=== PATIENT | female | born 1945 | race Caucasian/White ===

== ENCOUNTER 2017-11-26 03:48 | Inpatient (IN) | payer MEDICARE, MEDICAID ==
[~2017-11-26] VITALS: Ht 162.6 cm; Wt 74.0 kg
[~2017-11-26 03:48] MED LIST: ACET-2119 PO; ALBU1.257 NEB; ATOR10TA70 PO; BISA10SU60 RC; CARV25TA56 PO; CEPH250T PO; DOCU-28 PO; ESCI10TA54 PO; FLUC150T PO; FLUT1AER INH; FURO-150 PO; LEVO50TA8 PO; LORA0.5T PO; LOSA50TA21 PO; MAGN400O6 PO; MORP100T21 PO; MULT-1085 PO; ONDA4TAB9 SL; OXYC-145 PO; PHEN-716 PO; POLY17PO10 PO; POTA10TA19 PO; SPIIN IH; SULF1TAB49 PO; VARE0.5T PO
[2017-11-26] MEDS ORDERED: methylPREDNISolone sod succ 125mg/2ml vial IV ONE (04:05)
[2017-11-26] MEDS ORDERED: albuterol 2.5 MG/3 ML nebule CONTNEB PRN (04:05)
[2017-11-26 05:04] LABS: BASOPHILS % (AUTO) 0.4 % (0-1); EOSINOPHILS # (AUTO) 0.1 X10'3 (0-0.9); EOSINOPHILS % (AUTO) 1.4 % (0-6); HEMATOCRIT 37.5 % (35.0-45.0); HEMOGLOBIN 12.5 g/dl (12.0-16.0); LYMPHOCYTES # (AUTO) 1.8 X10'3 (1.1-4.8); LYMPHOCYTES % (AUTO) 19.1 % (21-51); MEAN CORPUSCULAR HEMOGLOBIN 32.3 PG (27.0-31.0); MEAN CORPUSCULAR HGB CONC 33.3 % (33.0-36.5); MEAN CORPUSCULAR VOLUME 96.9 FL (78-98); MEAN PLATELET VOLUME 8.6 FL (7.4-10.4); MONOCYTES # (AUTO) 0.6 X10'3 (0-0.9); NEUTROPHILS % (AUTO) 73.1 % (42-75); PLATELET COUNT 268 X10'3 (140-440); RED BLOOD COUNT 3.87 X10'6 (4.20-5.60); WHITE BLOOD COUNT 9.6 X10'3 (4.5-11.0)
[2017-11-26 05:36] LABS: ALANINE AMINOTRANSFERASE 20 U/L (12-78); ALBUMIN/GLOBULIN RATIO 0.7 (1.1-1.5); ALKALINE PHOSPHATASE 109 IU/L (46-116); ANION GAP 9 (8-16); ASPARTATE AMINO TRANSFERASE 22 U/L (10-37); BILIRUBIN,TOTAL 0.2 MG/DL (0.1-1.0); CALCIUM 9.1 MG/DL (8.5-10.1); CHLORIDE 103 MMOL/L (99-107); CREATININE 0.65 MG/DL (0.40-0.90); GLUCOSE 119 MG/DL (70-104); SODIUM 142 MMOL/L (135-145); TOTAL CARBON DIOXIDE 30.5 MMOL/L (24-32); TOTAL PROTEIN 7.6 G/DL (6.4-8.2); eGFR 90 ML/MIN
[2017-11-26 05:44] LABS: BUN/CREATININE RATIO 44.6 (6.6-38.0)
[2017-11-26 05:45] LABS: POTASSIUM 4.7 MMOL/L (3.5-5.1)
[2017-11-26 05:48] LABS: BLOOD UREA NITROGEN 29 MG/DL (7-18)
[2017-11-26] MEDS ORDERED: acetaminophen 325mg tablet PO PRN (08:55)
[2017-11-26] MEDS ORDERED: morphine 2 MG/ML inj. syringe IV PRN ×2 (08:55)
[2017-11-26] MEDS ORDERED: ondansetron/PF 4mg/2ml inj IV PRN (08:55)
[2017-11-26] MEDS ORDERED: magnesium Cl slow-release 64mg tablet PO PRN (08:55)
[2017-11-26] MEDS ORDERED: potassium Cl 40MEQ/NS 500ml 500 ML IV PRN ×2 (08:55)
[2017-11-26] MEDS ORDERED: magnesium 1gm/100ml D5W IVPB 100 ML IV PRN (08:55)
[2017-11-26] MEDS ORDERED: potassium Cl 20 mEq SR tablet PO PRN ×2 (08:55)
[2017-11-26] MEDS ORDERED: magnesium 4gm in 100ml NS 100 ML IV PRN (08:55)
[2017-11-26] MEDS ORDERED: CRAN3875 PO (09:05)
[2017-11-26] MEDS ORDERED: FAMO-128 PO (09:05)
[2017-11-26] MEDS ORDERED: LORA0.5T PO (09:05)
[2017-11-26] MEDS ORDERED: GUAI100L55 (09:05)
[2017-11-26] MEDS ORDERED: FURO-150 PO (09:05)
[2017-11-26] MEDS ORDERED: SERT50TA PO (09:05)
[2017-11-26] MEDS ORDERED: POTA20TA19 PO (09:05)
[2017-11-26] MEDS ORDERED: CARV-50 PO (09:05)
[2017-11-26] MEDS ORDERED: PER10325T PO (09:05)
[2017-11-26] MEDS ORDERED: ARIP5TAB4 PO (09:05)
[2017-11-26] MEDS ORDERED: MAGN400O6 PO (09:05)
[2017-11-26] MEDS ORDERED: GUAI600T45 PO (09:05)
[2017-11-26] MEDS ORDERED: CEPH-572 PO (09:05)
[2017-11-26] MEDS ORDERED: MORP30TA60 PO (09:05)
[2017-11-26] MEDS ORDERED: IPRA3AMP9 IH (09:05)
[2017-11-26] MEDS ORDERED: CHOL10002 PO (09:05)
[2017-11-26] MEDS ORDERED: TIOT18CA3 IH (09:05)
[2017-11-26] MEDS ORDERED: UMEC62.5 (09:05)
[2017-11-26] MEDS ORDERED: nicotine 14mg patch - 24hr TD ONE (09:15)
[2017-11-26] MEDS ORDERED: LORazepam 0.5 MG tablet PO PRN (09:15)
[2017-11-26 09:26] LABS: ABG BASE EXCESS 1.5 mmol/L (-2.0-3.0); ABG HCO3 29.7 mmol/L (22.0-26.0); ABG OXYGEN SATURATION 88.8 % (95-98); ABG PCO2 (T) 62.7 mmHg (32.0-45.0); ABG PH (T) 7.293 (7.350-7.450); ABG PO2 (T) 60.5 mmHg (83-108); ALLEN'S TEST Positive; FCOHb 0.8 % (0.5-1.5); FLOW 5 L/min; FMetHb 0.1 % (0.3-1.12); TOTAL HEMOGLOBIN 14.4 G/dl (12.0-16.0)
[2017-11-26] MEDS: normal saline 1000ml 1,000 ML IV SCH (09:36)
[2017-11-26 10:40] VITALS: BP 138/77
[2017-11-26] MEDS ORDERED: albuterol 2.5 MG/3 ML nebule NEB SCH (11:00)
[2017-11-26] MEDS: albuterol 2.5 MG/3 ML nebule NEB SCH ×4 (11:05→23:47)
[2017-11-26] MEDS: HYDROcodone/acetaminophen 10/325mg tab PO PRN (12:14)
[2017-11-26] MEDS: CefTRIAXone 2gm/D5W 50ml 50 ML IV SCH (12:15)
[2017-11-26] MEDS ORDERED: pneumococcal 23-VAL P-sac vacc 25 mcg/0.5ml vial IMVAC ONE (16:35)
[2017-11-26 17:45] VITALS: BP 122/77
[2017-11-26] MEDS ORDERED: diltiazem-NS 100mg/100ml 100 ML IV SCH (17:55)
[2017-11-26 19:00] VITALS: BP 120/72
[2017-11-26] MEDS: docusate sod 100mg capsule PO SCH (19:35)
[2017-11-26] MEDS: morphine ER 30mg tablet PO SCH (19:35)
[2017-11-26] MEDS: guaiFENesin ER 600mg tablet PO SCH (19:35)
[2017-11-26] MEDS: carvedilol 6.25mg tablet PO SCH (19:36)
[2017-11-26] MEDS: famotidine 20mg tablet PO SCH (19:36)
[2017-11-26] MEDS: heparin, porcine 5000 units/ml vial SQ SCH (19:37)
[2017-11-26] MEDS: BUDESONIDE 0.25 MG/2 ML AMPUL.NEB IH SCH (20:13)
[2017-11-26] MEDS ORDERED: temazepam 15mg capsule PO PRN (21:00)
[2017-11-26] MEDS: atorvastatin 10mg tablet PO SCH (21:48)
[2017-11-26] MEDS: sertraline 50mg tablet PO SCH (21:48)
[2017-11-26 22:00] VITALS: BP 132/66
[2017-11-27 02:00] VITALS: BP 117/63
[2017-11-27] MEDS: albuterol 2.5 MG/3 ML nebule NEB SCH ×4 (06:48→20:14)
[2017-11-27] MEDS: BUDESONIDE 0.25 MG/2 ML AMPUL.NEB IH SCH ×2 (06:48→20:14)
[2017-11-27 07:00] VITALS: BP 122/65
[2017-11-27] MEDS: levoTHYROXINE 112mcg tablet PO SCH (07:00)
[2017-11-27] MEDS: potassium chloride 10mEq ER tablet PO SCH (08:00)
[2017-11-27] MEDS: K and/or MAG REPLACEMENT MC SCH (08:00)
[2017-11-27 08:11] LABS: BASOPHILS % (AUTO) 0.2 % (0-1); EOSINOPHILS # (AUTO) 0.1 X10'3 (0-0.9); HEMATOCRIT 39.3 % (35.0-45.0); HEMOGLOBIN 12.8 g/dl (12.0-16.0); LYMPHOCYTES # (AUTO) 1.9 X10'3 (1.1-4.8); LYMPHOCYTES % (AUTO) 22.6 % (21-51); MEAN CORPUSCULAR HEMOGLOBIN 32.1 PG (27.0-31.0); MEAN CORPUSCULAR HGB CONC 32.6 % (33.0-36.5); MEAN CORPUSCULAR VOLUME 98.4 FL (78-98); MEAN PLATELET VOLUME 8.9 FL (7.4-10.4); MONOCYTES # (AUTO) 0.8 X10'3 (0-0.9); MONOCYTES % (AUTO) 9.3 % (2-12); NEUTROPHILS # (AUTO) 5.5 X10'3 (1.8-7.7); NEUTROPHILS % (AUTO) 66.9 % (42-75); PLATELET COUNT 280 X10'3 (140-440); RED BLOOD COUNT 3.99 X10'6 (4.20-5.60); WHITE BLOOD COUNT 8.2 X10'3 (4.5-11.0)
[2017-11-27 08:22] LABS: ANION GAP 10 (8-16); BLOOD UREA NITROGEN 23 MG/DL (7-18); BUN/CREATININE RATIO 29.9 (6.6-38.0); CHLORIDE 105 MMOL/L (99-107); CREATININE 0.77 MG/DL (0.40-0.90); GLUCOSE 100 MG/DL (70-104); MAGNESIUM 2.3 MG/DL (1.5-2.4); POTASSIUM 4.2 MMOL/L (3.5-5.1); SODIUM 145 MMOL/L (135-145); TOTAL CARBON DIOXIDE 30.5 MMOL/L (24-32); eGFR 74 ML/MIN
[2017-11-27] MEDS: guaiFENesin ER 600mg tablet PO SCH ×2 (08:41→20:39)
[2017-11-27] MEDS: morphine ER 30mg tablet PO SCH ×2 (08:42→20:39)
[2017-11-27] MEDS: docusate sod 100mg capsule PO SCH ×2 (08:42→20:38)
[2017-11-27] MEDS: famotidine 20mg tablet PO SCH ×2 (08:44→20:40)
[2017-11-27] MEDS: furosemide 20MG tablet PO SCH (08:44)
[2017-11-27] MEDS: carvedilol 6.25mg tablet PO SCH ×2 (08:44→20:38)
[2017-11-27] MEDS: aripiprazole 5mg tablet PO SCH (08:45)
[2017-11-27] MEDS: losartan 25mg tablet PO SCH (08:45)
[2017-11-27] MEDS: methylPREDNISolone sod succ/PF 40mg inj. IV SCH (08:50)
[2017-11-27] MEDS: heparin, porcine 5000 units/ml vial SQ SCH (08:50)
[2017-11-27] MEDS: CefTRIAXone 2gm/D5W 50ml 50 ML IV SCH (08:50)
[2017-11-27 10:51] LABS: ABG BASE EXCESS 6.2 mmol/L (-2.0-3.0); ABG HCO3 31.8 mmol/L (22.0-26.0); ABG PCO2 (T) 49.2 mmHg (32.0-45.0); ABG PH (T) 7.429 (7.350-7.450); ABG PO2 (T) 43.9 mmHg (83-108); ALLEN'S TEST Positive; FLOW 3 L/min
[2017-11-27 11:00] VITALS: BP 108/61
[2017-11-27] MEDS: diltiazem CD 120mg capsule (once-daily) PO SCH (14:30)
[2017-11-27] MEDS: HYDROcodone/acetaminophen 5mg/325mg tablet PO PRN (14:31)
[2017-11-27 15:00] VITALS: BP 95/61
[2017-11-27 19:00] VITALS: BP 119/66
[2017-11-27] MEDS: lactobacillus rhamnosus 10,000 MMU CELLS/CAPSULE PO SCH (20:38)
[2017-11-27] MEDS: apixaban 5mg tablet PO SCH (20:38)
[2017-11-27] MEDS: atorvastatin 10mg tablet PO SCH (20:39)
[2017-11-27] MEDS: sertraline 50mg tablet PO SCH (20:39)
[2017-11-27 23:00] VITALS: BP_SYST 116; BP_SYST 98; BP_DIAS 59; BP_DIAS 87
[2017-11-28] VITALS (7 sets, daily range): BP systolic 91–114; BP diastolic 51–71
[2017-11-28] MEDS: HYDROcodone/acetaminophen 5mg/325mg tablet PO PRN (03:10)
[2017-11-28 06:37] LABS: ALBUMIN 2.8 G/DL (3.4-5.0); ANION GAP 9 (8-16); BASOPHILS % (AUTO) 0.3 % (0-1); BLOOD UREA NITROGEN 28 MG/DL (7-18); BUN/CREATININE RATIO 38.9 (6.6-38.0); CALCIUM 8.7 MG/DL (8.5-10.1); CHLORIDE 104 MMOL/L (99-107); CREATININE 0.72 MG/DL (0.40-0.90); EOSINOPHILS # (AUTO) 0.1 X10'3 (0-0.9); EOSINOPHILS % (AUTO) 0.8 % (0-6); GLUCOSE 88 MG/DL (70-104); HEMOGLOBIN 12.2 g/dl (12.0-16.0); LYMPHOCYTES # (AUTO) 2.5 X10'3 (1.1-4.8); LYMPHOCYTES % (AUTO) 29.3 % (21-51); MEAN CORPUSCULAR HEMOGLOBIN 32.1 PG (27.0-31.0); MEAN CORPUSCULAR HGB CONC 32.9 % (33.0-36.5); MEAN CORPUSCULAR VOLUME 97.4 FL (78-98); MEAN PLATELET VOLUME 8.3 FL (7.4-10.4); MONOCYTES # (AUTO) 0.8 X10'3 (0-0.9); MONOCYTES % (AUTO) 9.7 % (2-12); NEUTROPHILS % (AUTO) 59.9 % (42-75); PLATELET COUNT 286 X10'3 (140-440); POTASSIUM 3.7 MMOL/L (3.5-5.1); RED CELL DISTRIBUTION WIDTH 13.7 % (11.5-14.5); SODIUM 143 MMOL/L (135-145); TOTAL CARBON DIOXIDE 29.9 MMOL/L (24-32); WHITE BLOOD COUNT 8.4 X10'3 (4.5-11.0); eGFR 80 ML/MIN
[2017-11-28] MEDS: albuterol 2.5 MG/3 ML nebule NEB SCH ×4 (07:41→19:56)
[2017-11-28] MEDS: BUDESONIDE 0.25 MG/2 ML AMPUL.NEB IH SCH ×2 (07:41→19:56)
[2017-11-28] MEDS: K and/or MAG REPLACEMENT MC SCH (08:00)
[2017-11-28] MEDS: levoTHYROXINE 112mcg tablet PO SCH (08:00)
[2017-11-28] MEDS: carvedilol 6.25mg tablet PO SCH ×2 (08:00→20:05)
[2017-11-28] MEDS: morphine ER 30mg tablet PO SCH ×2 (08:09→20:06)
[2017-11-28] MEDS: famotidine 20mg tablet PO SCH ×2 (08:09→20:06)
[2017-11-28] MEDS: aripiprazole 5mg tablet PO SCH (08:10)
[2017-11-28] MEDS: diltiazem CD 120mg capsule (once-daily) PO SCH (08:10)
[2017-11-28] MEDS: guaiFENesin ER 600mg tablet PO SCH ×2 (08:11→20:06)
[2017-11-28] MEDS: losartan 25mg tablet PO SCH (08:12)
[2017-11-28] MEDS: docusate sod 100mg capsule PO SCH ×2 (08:12→20:05)
[2017-11-28] MEDS: lactobacillus rhamnosus 10,000 MMU CELLS/CAPSULE PO SCH ×2 (08:13→20:05)
[2017-11-28] MEDS: furosemide 20MG tablet PO SCH (08:13)
[2017-11-28] MEDS: apixaban 5mg tablet PO SCH ×2 (08:13→20:05)
[2017-11-28] MEDS: methylPREDNISolone sod succ/PF 40mg inj. IV SCH (08:14)
[2017-11-28] MEDS: potassium chloride 10mEq ER tablet PO SCH (08:14)
[2017-11-28] MEDS: CefTRIAXone 2gm/D5W 50ml 50 ML IV SCH (08:15)
[2017-11-28] MEDS: normal saline 1000ml 1,000 ML IV SCH (08:55)
[2017-11-28] MEDS ORDERED: CefTRIAXone/D5W-Rocephin 1gm 50 ML IV SCH (09:15)
[2017-11-28] MEDS: HYDROcodone/acetaminophen 10/325mg tab PO PRN ×2 (14:55→21:13)
[2017-11-28] MEDS: vancomycin/NS 1 GM ADD-VANTAGE 250 ML IV SCH (14:55)
[2017-11-28] MEDS ORDERED: vancomycin/NS 1 GM ADD-VANTAGE 250 ML IV SCH (20:00)
[2017-11-28] MEDS: sertraline 50mg tablet PO SCH (21:12)
[2017-11-28] MEDS: atorvastatin 10mg tablet PO SCH (21:12)
[2017-11-29] VITALS (8 sets, daily range): BP systolic 106–133; BP diastolic 54–65
[2017-11-29] MEDS: vancomycin/NS 1 GM ADD-VANTAGE 250 ML IV SCH ×2 (02:10→15:12)
[2017-11-29] MEDS: HYDROcodone/acetaminophen 10/325mg tab PO PRN ×2 (03:32→13:43)
[2017-11-29 05:42] LABS: BASOPHILS % (AUTO) 0.4 % (0-1); EOSINOPHILS # (AUTO) 0.2 X10'3 (0-0.9); EOSINOPHILS % (AUTO) 2.6 % (0-6); HEMATOCRIT 34.7 % (35.0-45.0); HEMOGLOBIN 11.4 g/dl (12.0-16.0); LYMPHOCYTES # (AUTO) 2.2 X10'3 (1.1-4.8); LYMPHOCYTES % (AUTO) 29.1 % (21-51); MEAN CORPUSCULAR HEMOGLOBIN 31.7 PG (27.0-31.0); MEAN CORPUSCULAR HGB CONC 32.9 % (33.0-36.5); MEAN CORPUSCULAR VOLUME 96.5 FL (78-98); MEAN PLATELET VOLUME 8.6 FL (7.4-10.4); MONOCYTES # (AUTO) 0.8 X10'3 (0-0.9); MONOCYTES % (AUTO) 10.1 % (2-12); NEUTROPHILS # (AUTO) 4.3 X10'3 (1.8-7.7); NEUTROPHILS % (AUTO) 57.8 % (42-75); PLATELET COUNT 261 X10'3 (140-440); RED BLOOD COUNT 3.59 X10'6 (4.20-5.60); RED CELL DISTRIBUTION WIDTH 13.9 % (11.5-14.5); WHITE BLOOD COUNT 7.4 X10'3 (4.5-11.0)
[2017-11-29 05:49] LABS: ALBUMIN 2.6 G/DL (3.4-5.0); ANION GAP 9 (8-16); BLOOD UREA NITROGEN 22 MG/DL (7-18); BUN/CREATININE RATIO 33.3 (6.6-38.0); CALCIUM 8.2 MG/DL (8.5-10.1); CHLORIDE 105 MMOL/L (99-107); CREATININE 0.66 MG/DL (0.40-0.90); GLUCOSE 91 MG/DL (70-104); MAGNESIUM 1.9 MG/DL (1.5-2.4); POTASSIUM 3.7 MMOL/L (3.5-5.1); SODIUM 144 MMOL/L (135-145); TOTAL CARBON DIOXIDE 29.7 MMOL/L (24-32); eGFR 89 ML/MIN
[2017-11-29] MEDS: CefTRIAXone/D5W-Rocephin 1gm 50 ML IV SCH (07:21)
[2017-11-29] MEDS: potassium chloride 10mEq ER tablet PO SCH (07:21)
[2017-11-29] MEDS: methylPREDNISolone sod succ/PF 40mg inj. IV SCH (07:21)
[2017-11-29] MEDS: levoTHYROXINE 112mcg tablet PO SCH (07:21)
[2017-11-29] MEDS: aripiprazole 5mg tablet PO SCH (07:21)
[2017-11-29] MEDS: guaiFENesin ER 600mg tablet PO SCH ×2 (07:21→20:45)
[2017-11-29] MEDS: diltiazem CD 120mg capsule (once-daily) PO SCH (07:22)
[2017-11-29] MEDS: lactobacillus rhamnosus 10,000 MMU CELLS/CAPSULE PO SCH ×2 (07:22→20:45)
[2017-11-29] MEDS: carvedilol 6.25mg tablet PO SCH ×2 (07:22→20:45)
[2017-11-29] MEDS: losartan 25mg tablet PO SCH (07:22)
[2017-11-29] MEDS: apixaban 5mg tablet PO SCH ×2 (07:23→20:45)
[2017-11-29] MEDS: morphine ER 30mg tablet PO SCH ×2 (07:23→20:45)
[2017-11-29] MEDS: famotidine 20mg tablet PO SCH ×2 (07:23→20:45)
[2017-11-29] MEDS: docusate sod 100mg capsule PO SCH ×2 (08:00→20:45)
[2017-11-29] MEDS: BUDESONIDE 0.25 MG/2 ML AMPUL.NEB IH SCH ×2 (08:02→19:22)
[2017-11-29] MEDS: albuterol 2.5 MG/3 ML nebule NEB SCH ×4 (08:03→19:22)
[2017-11-29] MEDS: K and/or MAG REPLACEMENT MC SCH (08:13)
[2017-11-29] MEDS: normal saline 1000ml 1,000 ML IV SCH (13:44)
[2017-11-29] MEDS: atorvastatin 10mg tablet PO SCH (20:45)
[2017-11-29] MEDS: sertraline 50mg tablet PO SCH (20:45)
[2017-11-30] MEDS ORDERED: VANCOMYCIN LEVEL IV ONE (01:30)
[2017-11-30 01:57] LABS: ALBUMIN 2.5 G/DL (3.4-5.0); ANION GAP 8 (8-16); BLOOD UREA NITROGEN 22 MG/DL (7-18); BUN/CREATININE RATIO 27.8 (6.6-38.0); CALCIUM 8.7 MG/DL (8.5-10.1); CHLORIDE 106 MMOL/L (99-107); CREATININE 0.79 MG/DL (0.40-0.90); GLUCOSE 118 MG/DL (70-104); MAGNESIUM 1.9 MG/DL (1.5-2.4); POTASSIUM 4.3 MMOL/L (3.5-5.1); SODIUM 143 MMOL/L (135-145); TOTAL CARBON DIOXIDE 29.4 MMOL/L (24-32); eGFR 72 ML/MIN
[2017-11-30] MEDS: vancomycin/NS 1 GM ADD-VANTAGE 250 ML IV SCH (02:00)
[2017-11-30 02:11] LABS: VANCOMYCIN,TROUGH 20.8 UG/ML (6.0-14.0)
[2017-11-30 03:00] VITALS: BP 128/60
[2017-11-30 05:45] LABS: BASOPHILS % (AUTO) 0.5 % (0-1); EOSINOPHILS # (AUTO) 0.1 X10'3 (0-0.9); EOSINOPHILS % (AUTO) 1.3 % (0-6); HEMATOCRIT 35.1 % (35.0-45.0); HEMOGLOBIN 11.5 g/dl (12.0-16.0); LYMPHOCYTES # (AUTO) 2.5 X10'3 (1.1-4.8); LYMPHOCYTES % (AUTO) 28.9 % (21-51); MEAN CORPUSCULAR HGB CONC 32.8 % (33.0-36.5); MEAN CORPUSCULAR VOLUME 97.6 FL (78-98); MEAN PLATELET VOLUME 8.7 FL (7.4-10.4); MONOCYTES # (AUTO) 0.8 X10'3 (0-0.9); MONOCYTES % (AUTO) 9.6 % (2-12); NEUTROPHILS # (AUTO) 5.1 X10'3 (1.8-7.7); NEUTROPHILS % (AUTO) 59.7 % (42-75); PLATELET COUNT 294 X10'3 (140-440); RED BLOOD COUNT 3.59 X10'6 (4.20-5.60); RED CELL DISTRIBUTION WIDTH 13.5 % (11.5-14.5); WHITE BLOOD COUNT 8.6 X10'3 (4.5-11.0)
[2017-11-30 07:00] VITALS: BP 135/65
[2017-11-30] MEDS ORDERED: levoTHYROXINE 25mcg tablet PO SCH (07:00)
[2017-11-30] MEDS ORDERED: levoTHYROXINE 112mcg tablet PO SCH (07:00)
[2017-11-30] MEDS: docusate sod 100mg capsule PO SCH (08:00)
[2017-11-30] MEDS: morphine ER 30mg tablet PO SCH (08:00)
[2017-11-30] MEDS: CefTRIAXone/D5W-Rocephin 1gm 50 ML IV SCH (08:00)
[2017-11-30] MEDS: guaiFENesin ER 600mg tablet PO SCH (08:00)
[2017-11-30] MEDS: K and/or MAG REPLACEMENT MC SCH (08:00)
[2017-11-30] MEDS: famotidine 20mg tablet PO SCH (08:00)
[2017-11-30] MEDS: aripiprazole 5mg tablet PO SCH (08:00)
[2017-11-30] MEDS: methylPREDNISolone sod succ/PF 40mg inj. IV SCH (08:00)
[2017-11-30] MEDS: lactobacillus rhamnosus 10,000 MMU CELLS/CAPSULE PO SCH (08:00)
[2017-11-30] MEDS: potassium chloride 10mEq ER tablet PO SCH (08:00)
[2017-11-30] MEDS: carvedilol 6.25mg tablet PO SCH (08:01)
[2017-11-30] MEDS: diltiazem CD 120mg capsule (once-daily) PO SCH (08:02)
[2017-11-30] MEDS: losartan 25mg tablet PO SCH (08:02)
[2017-11-30] MEDS: apixaban 5mg tablet PO SCH (08:02)
[2017-11-30] MEDS: albuterol 2.5 MG/3 ML nebule NEB SCH ×2 (08:05→12:13)
[2017-11-30] MEDS: BUDESONIDE 0.25 MG/2 ML AMPUL.NEB IH SCH (08:06)
[2017-11-30 11:00] VITALS: BP 114/61
[2017-11-30] MEDS ORDERED: CARCD120C PO (11:20)
[2017-11-30] MEDS ORDERED: LEVO25TA7 PO (11:20)
[2017-11-30] MEDS ORDERED: APIX5TAB3 PO (11:20)
[2017-11-30] MEDS ORDERED: PRED10TA23 PO (11:20)
== END 2017-11-30 13:42 | DRG 189 ==
LOC: ER 03:48 → ED HOLD 08:55 → SUR 3N 10:30 → PCU 3S 18:50
PROVIDERS: ADMIT Internal Medicine; ATTEND Family Medicine
PROC: 3E0234Z Introduction of Serum, Toxoid and Vaccine into Muscle, Percutaneous Approach (ICD-10-PCS; principal; 2017-11-26)
DX: J96.21 Acute and chronic respiratory failure with hypoxia (principal); E43 Unspecified severe protein-calorie malnutrition; J44.1 Chronic obstructive pulmonary disease with (acute) exacerbation; E87.2 Acidosis; J44.0 Chronic obstructive pulmonary disease with (acute) lower respiratory infection; J20.9 Acute bronchitis, unspecified; E03.9 Hypothyroidism, unspecified; E78.5 Hyperlipidemia, unspecified; F17.210 Nicotine dependence, cigarettes, uncomplicated; F32.9 Major depressive disorder, single episode, unspecified; F41.9 Anxiety disorder, unspecified; G89.4 Chronic pain syndrome; I11.0 Hypertensive heart disease with heart failure; I25.10 Atherosclerotic heart disease of native coronary artery without angina pectoris; I48.91 Unspecified atrial fibrillation; I50.9 Heart failure, unspecified; K21.9 Gastro-esophageal reflux disease without esophagitis; Z23 Encounter for immunization; Z90.49 Acquired absence of other specified parts of digestive tract; Z90.710 Acquired absence of both cervix and uterus; Z93.3 Colostomy status; Z79.899 Other long term (current) drug therapy; Z79.01 Long term (current) use of anticoagulants; Z87.440 Personal history of urinary (tract) infections; Z87.01 Personal history of pneumonia (recurrent); Z82.49 Family history of ischemic heart disease and other diseases of the circulatory system; Z82.5 Family history of asthma and other chronic lower respiratory diseases; Z84.89 Family history of other specified conditions; Z68.28 Body mass index [BMI] 28.0-28.9, adult; Z71.6 Tobacco abuse counseling
CPT/HCPCS: 36415; 36600; 71045; 80048; 80053; 80202; 82803; 83605; 83735; 83880; 84443; 84484; 85018; 85025; 87040; 87070; 87077; 87186; 90732; 93005; 94640; 94760; 96374; 97110; 97116; 97162; 99285; A6213; J0696; J1644; J2270; J2405; J2920; J2930; J3370; J7030

== ENCOUNTER 2018-07-29 06:10 | Inpatient (IN) | payer MEDICARE, MEDICAID ==
[~2018-07-29] VITALS: Ht 162.6 cm; Wt 79.8 kg
[2018-07-29] VITALS (12 sets, daily range): BP systolic 86–152; BP diastolic 43–98
[~2018-07-29 06:10] MED LIST changes: -ALBU1.257 NEB; +APIX5TAB3 PO; +ARIP5TAB4 PO; -BISA10SU60 RC; +CARCD120C PO; +CARV-50 PO; -CARV25TA56 PO; -CEPH250T PO; +CHOL10002 PO; +CRAN3875 PO; -ESCI10TA54 PO; +FAMO-128 PO; -FLUC150T PO; +GUAI600T45 PO; +IPRA3AMP9 IH; +LEVO25TA7 PO; -LOSA50TA21 PO; +LOSA50TA64 PO; -MORP100T21 PO; +MORP30TA60 PO; -OXYC-145 PO; +PER10325T PO; -PHEN-716 PO; -POLY17PO10 PO; -POTA10TA19 PO; +POTA20TA19 PO; +SERT50TA PO; -SPIIN IH; -SULF1TAB49 PO; +TIOT18CA3 IH; +UMEC62.5 INH
[2018-07-29] MEDS ORDERED: ipratropium/albuterol 3ml nebule NEB ONE (06:20)
[2018-07-29] MEDS ORDERED: methylPREDNISolone sod succ 125mg/2ml vial IV ONE (06:20)
[2018-07-29 06:52] LABS: BASOPHILS % (AUTO) 0.1 % (0-1); EOSINOPHILS % (AUTO) 0 % (0-6); HEMATOCRIT 36.1 % (35.0-45.0); HEMOGLOBIN 11.9 g/dl (12.0-16.0); LYMPHOCYTES # (AUTO) 1.4 X10'3 (1.1-4.8); LYMPHOCYTES % (AUTO) 7.6 % (21-51); MEAN CORPUSCULAR HEMOGLOBIN 31.4 PG (27.0-31.0); MEAN CORPUSCULAR VOLUME 94.9 FL (78-98); MEAN PLATELET VOLUME 8.7 FL (7.4-10.4); MONOCYTES % (AUTO) 5.4 % (2-12); NEUTROPHILS # (AUTO) 16.5 X10'3 (1.8-7.7); NEUTROPHILS % (AUTO) 86.9 % (42-75); PLATELET COUNT 242 X10'3 (140-440); RED CELL DISTRIBUTION WIDTH 15.2 % (11.5-14.5)
[2018-07-29 07:01] LABS: ALANINE AMINOTRANSFERASE 21 U/L (12-78); ALBUMIN 3.3 G/DL (3.4-5.0); ALBUMIN/GLOBULIN RATIO 0.7 (1.1-1.5); ALKALINE PHOSPHATASE 112 IU/L (46-116); ANION GAP 6 (8-16); ASPARTATE AMINO TRANSFERASE 11 U/L (10-37); BILIRUBIN,TOTAL 0.4 MG/DL (0.1-1.0); BLOOD UREA NITROGEN 19 MG/DL (7-18); BUN/CREATININE RATIO 21.3 (6.6-38.0); CHLORIDE 102 MMOL/L (99-107); CREATININE 0.89 MG/DL (0.40-0.90); GLUCOSE 157 MG/DL (70-104); POTASSIUM 4.1 MMOL/L (3.5-5.1); SODIUM 139 MMOL/L (135-145); TOTAL CARBON DIOXIDE 31.3 MMOL/L (24-32); TOTAL PROTEIN 8.1 G/DL (6.4-8.2); eGFR 63 ML/MIN
[2018-07-29 07:21] LABS: PARTIAL THROMBOPLASTIN TIME 40 SECONDS (22-32)
[2018-07-29] MEDS ORDERED: ondansetron/PF 4mg/2ml inj IV ONE (07:35)
[2018-07-29] MEDS ORDERED: CefTRIAXone 2gm/D5W 50ml 50 ML IV ONE (07:35)
[2018-07-29] MEDS ORDERED: morphine 4 MG/ML inj SYRINge IV PRN (07:35)
[2018-07-29] MEDS ORDERED: ondansetron/PF 4mg/2ml inj IV PRN (07:50)
[2018-07-29] MEDS ORDERED: acetaminophen 325mg tablet PO PRN ×4 (07:50→13:05)
[2018-07-29] MEDS ORDERED: morphine 2 MG/ML inj. syringe IV PRN ×2 (07:50)
[2018-07-29] MEDS ORDERED: magnesium hydroxide 30ml (MOM) UD suspension PO PRN (07:50)
[2018-07-29] MEDS ORDERED: HYDROcodone/acetaminophen 5mg/325mg tablet PO PRN (07:50)
[2018-07-29 08:06] LABS: ABG BASE EXCESS 3.5 mmol/L (-2.0-3.0); ABG OXYGEN SATURATION 96.9 % (95-98); ABG PCO2 (T) 60.4 mmHg (32.0-45.0); ABG PH (T) 7.328 (7.350-7.450); ABG PO2 (T) 93.9 mmHg (83-108); ALLEN'S TEST Positive; FCOHb 0.8 % (0.5-1.5); FLOW 4 L/min; FMetHb 0.2 % (0.3-1.12); FO2Hb 95.9 % (94-100); TOTAL HEMOGLOBIN 13.1 G/dl (12.0-16.0)
[2018-07-29] MEDS: furosemide 20 MG/2 ML vial IV SCH ×2 (08:07→20:33)
[2018-07-29 09:07] LABS: ANISOCYTOSIS 1+; PLATELET ESTIMATE NORMAL; TOTAL CELLS COUNTED 100; TOXIC GRANULATION 2+
--- NOTE | 2018-07-29 10:49 | NUR ---
DR BAUER AT BED SIDE, BIPAP ORDERED, PT WORK OF BREATHING INCREASE 28-30 BREATHS PER MINUTE, SPOKE TO DR. REA WHO WILL VISIT ER, PT TO BE STABALIZED BEFORE MOVING, EKG IN ROOM
[2018-07-29] MEDS ORDERED: etomidate 2mg/ml inj. ONE (12:00)
[2018-07-29 12:16] LABS: ABG BASE EXCESS 2.1 mmol/L (-2.0-3.0); ABG OXYGEN SATURATION 94.3 % (95-98); ABG PCO2 (T) 61.7 mmHg (32.0-45.0); ABG PH (T) 7.304 (7.350-7.450); ABG PO2 (T) 76.9 mmHg (83-108); ALLEN'S TEST Positive; FCOHb 0.9 % (0.5-1.5); FLOW 40 L/min; FMetHb 0.2 % (0.3-1.12); FO2Hb 93.3 % (94-100); PEEP 8 cm H2O; RESPIRATORY RATE 20 b/min; TOTAL HEMOGLOBIN 13.6 G/dl (12.0-16.0)
[2018-07-29] MEDS ORDERED: etomidate 2mg/ml inj. IV ONE (12:20)
[2018-07-29] MEDS ORDERED: succinylcholine 20mg/ml inj IV ONE (12:20)
--- NOTE | 2018-07-29 12:27 | NUR ---
PT CONDITION DECLINED, REVIEWED ABG OF 1209 WITH CHARGE NURSE DAYAMI, DR. JUANCARLOS KANG AND DR ÁLVARO WEINER, PT TO BE INTUBATED, EXPLAINED TO PT AND SHE ASKED IF SHE WOULD COME OUT OF THIS AND I TOLD HER WE DO THIS ALL THE TIME, I TOLD HER SHE WOULD WAKE UP IN ICU. PT TO BE MOVED TO ROOM 3. Addendum: 07/29/18 at 1229 by NICOLE I ASKED PT IF SHE HAD FAMILY AND SHE SAID NO, I ASKED HER IF I COULD CALL SOMEONE AND SHE SAID NO. I ASKED HER WHO THE PEOPLE WERE HEAR EARLIER THAT BROUGHT HER THE [place] AND SHE SAID FRIENDS BUT DID NOT INDICATED FOR ME TO CALL THEM.
--- NOTE | 2018-07-29 12:52 | NUR ---
team in place 1250, monitor placements, dentures removed v/s 148/98, 102 etomidate 20 mg at 1252 succs 120 [id number] bagging patient mac size 4-1253,24 at the lip, at 1251 etco2 color changed,condensation,+bilateral breath sound at 1254 1259 recycle b/p 206/98, pulse 110, sat 99% og tube per silvana rn-placement verifyed per ausculation- suction oral secretions vent settings tital volume 400, fio2 35 , rate of 14, peep 5 propofal at 15mcs to right ej,1308 chest x ray 1309
[2018-07-29] MEDS ORDERED: midazolam 2 mg/2 ml injection IV ONE (13:05)
[2018-07-29] MEDS ORDERED: fentaNYL/PF 50MCG/1 ML 2ML syringe IV PRN (13:05)
[2018-07-29] MEDS ORDERED: potassium Cl 20 mEq SR tablet PO PRN ×2 (13:05)
[2018-07-29] MEDS ORDERED: midazolam 100mg in NS 100ml 100 ML IV PRN (13:05)
[2018-07-29] MEDS ORDERED: ipratropium/albuterol 3ml nebule NEB PRN (13:05)
[2018-07-29] MEDS: CefTRIAXone/D5W-Rocephin 1gm 50 ML IV SCH (13:10)
[2018-07-29] MEDS: normal saline 1000ml 1,000 ML IV SCH (13:30)
[2018-07-29] MEDS: azithromycin/NS 500mg/250ml 250 ML IV SCH (13:30)
[2018-07-29] MEDS: propofol 1000mg/100ml bottle 100 ML IV PRN ×2 (13:52→20:42)
[2018-07-29] MEDS: methylPREDNISolone sod succ 125mg/2ml vial IV SCH ×2 (13:53→20:33)
[2018-07-29] MEDS: ipratropium/albuterol 3ml nebule NEB SCH ×3 (16:26→22:55)
[2018-07-29] MEDS: docusate sod 100mg capsule PO SCH (20:00)
[2018-07-29] MEDS ORDERED: heparin, porcine 5000 units/ml vial SQ SCH (20:00)
[2018-07-29] MEDS ORDERED: FLUO20CA22 PO (20:02)
[2018-07-29] MEDS ORDERED: RIVA20TA PO (20:02)
[2018-07-29] MEDS ORDERED: SERT50TA10 PO (20:02)
[2018-07-29] MEDS ORDERED: DILT120C88 PO (20:02)
[2018-07-29] MEDS ORDERED: PRED20TA PO (20:02)
[2018-07-29] MEDS ORDERED: LEVO150T8 PO (20:02)
[2018-07-29] MEDS: famotidine/PF 10 mg/ml inj IV SCH (20:33)
[2018-07-29] MEDS: FENTANYL-0.9 % NACL/PF 100 ML IV PRN (22:19)
[2018-07-29] MEDS ORDERED: diltiazem 5mg/ml 5ml inj. IV ONE ×2 (22:49→22:50)
[2018-07-30] VITALS (24 sets, daily range): BP systolic 96–162; BP diastolic 57–89
[2018-07-30] MEDS: normal saline 1000ml 1,000 ML IV SCH ×2 (01:50→16:26)
[2018-07-30] MEDS: methylPREDNISolone sod succ 125mg/2ml vial IV SCH ×4 (02:09→19:42)
[2018-07-30] MEDS: diltiazem 30mg tablet PO SCH ×4 (02:09→19:42)
[2018-07-30] MEDS: ipratropium/albuterol 3ml nebule NEB SCH ×6 (02:58→23:05)
[2018-07-30 04:16] LABS: ABG BASE EXCESS 5.4 mmol/L (-2.0-3.0); ABG HCO3 29.7 mmol/L (22.0-26.0); ABG OXYGEN SATURATION 95.2 % (95-98); ABG PCO2 (T) 43.2 mmHg (32.0-45.0); ABG PH (T) 7.457 (7.350-7.450); ABG PO2 (T) 73.9 mmHg (83-108); ALLEN'S TEST Positive; FCOHb 0.4 % (0.5-1.5); FMetHb 0.1 % (0.3-1.12); FO2Hb 94.7 % (94-100); PATIENT TEMPERATURE 37.7; PEEP 5 cm H2O; RESPIRATORY RATE 14 b/min; TIDAL VOLUME 400 mL; TOTAL HEMOGLOBIN 13.1 G/dl (12.0-16.0)
[2018-07-30 05:18] LABS: BASOPHILS % (AUTO) 0 % (0-1); EOSINOPHILS % (AUTO) 0 % (0-6); HEMATOCRIT 39.3 % (35.0-45.0); HEMOGLOBIN 12.8 g/dl (12.0-16.0); LYMPHOCYTES # (AUTO) 0.5 X10'3 (1.1-4.8); LYMPHOCYTES % (AUTO) 3.6 % (21-51); MEAN CORPUSCULAR HGB CONC 32.7 g/dL (33.0-36.5); MEAN PLATELET VOLUME 9.3 FL (7.4-10.4); MONOCYTES # (AUTO) 0.4 X10'3 (0-0.9); MONOCYTES % (AUTO) 2.9 % (2-12); NEUTROPHILS # (AUTO) 12.7 X10'3 (1.8-7.7); NEUTROPHILS % (AUTO) 93.5 % (42-75); PLATELET COUNT 243 X10'3 (140-440); RED BLOOD COUNT 4.14 X10'6 (4.20-5.60); RED CELL DISTRIBUTION WIDTH 15.5 % (11.5-14.5); WHITE BLOOD COUNT 13.5 X10'3 (4.5-11.0)
[2018-07-30 05:40] LABS: ALANINE AMINOTRANSFERASE 20 U/L (12-78); ALBUMIN 3.3 G/DL (3.4-5.0); ALBUMIN/GLOBULIN RATIO 0.6 (1.1-1.5); ALKALINE PHOSPHATASE 118 IU/L (46-116); ANION GAP 10 (8-16); ASPARTATE AMINO TRANSFERASE 15 U/L (10-37); BILIRUBIN,TOTAL 0.4 MG/DL (0.1-1.0); BLOOD UREA NITROGEN 18 MG/DL (7-18); BUN/CREATININE RATIO 20.7 (6.6-38.0); CALCIUM 9.6 MG/DL (8.5-10.1); CHLORIDE 101 MMOL/L (99-107); CHOL/HDL RATIO 2.6 (0.00-4.99); CHOLESTEROL 176 MG/DL (0-200); CREATININE 0.87 MG/DL (0.40-0.90); GLUCOSE 208 MG/DL (70-104); HDL CHOLESTEROL 69 MG/DL (35-60); LDL CHOLESTEROL 84 MG/DL (50-100); MAGNESIUM 1.8 MG/DL (1.5-2.4); PHOSPHORUS 1.5 MG/DL (2.3-4.5); SODIUM 142 MMOL/L (135-145); TOTAL CARBON DIOXIDE 30.9 MMOL/L (24-32); TOTAL PROTEIN 8.7 G/DL (6.4-8.2); TRIGLYCERIDES 136 MG/DL (20-135); eGFR 64 ML/MIN
--- NOTE | 2018-07-30 06:15 | NUR ---
Patient in room ICU 2045. I have received report from hedis analyst and had the opportunity to ask questions and assume patient care.
[2018-07-30 06:17] LABS: POTASSIUM 2.9 MMOL/L (3.5-5.1)
[2018-07-30] MEDS: budesonide 0.5mg/2ml UD nebule IH SCH ×2 (07:16→19:05)
[2018-07-30] MEDS: azithromycin/NS 500mg/250ml 250 ML IV SCH (07:41)
[2018-07-30] MEDS: FLUoxetine 20mg capsule PO SCH (07:42)
[2018-07-30] MEDS: vitamin D (cholecalciferol) 1,000 unit tablet PO SCH (07:42)
[2018-07-30] MEDS: famotidine/PF 10 mg/ml inj IV SCH ×2 (07:42→19:42)
[2018-07-30] MEDS: docusate sod 100mg capsule PO SCH ×2 (07:42→19:43)
[2018-07-30] MEDS: carvedilol 6.25mg tablet PO SCH ×2 (07:43→19:42)
[2018-07-30] MEDS: aripiprazole 5mg tablet PO SCH (07:43)
[2018-07-30] MEDS: levoTHYROXINE 75mcg tablet PO SCH (07:43)
[2018-07-30] MEDS: losartan 25mg tablet PO SCH (07:43)
[2018-07-30] MEDS: multivitamins, therapeutics tablet PO SCH (07:43)
[2018-07-30] MEDS: potassium Cl 20 mEq SR tablet PO SCH (07:44)
[2018-07-30] MEDS: sertraline 50mg tablet PO SCH (07:44)
[2018-07-30] MEDS: CefTRIAXone/D5W-Rocephin 1gm 50 ML IV SCH (07:55)
[2018-07-30] MEDS: furosemide 20 MG/2 ML vial IV SCH ×2 (07:55→19:42)
[2018-07-30] MEDS ORDERED: non-formulary drug (Umeclidinium Bromide (Incruse Ellipta) 1 PUFF) INH SCH (08:00)
[2018-07-30] MEDS ORDERED: FOS PO SCH (08:00)
[2018-07-30] MEDS ORDERED: CRAN PO SCH (08:00)
[2018-07-30] MEDS ORDERED: MANNOSE PO SCH (08:00)
[2018-07-30] MEDS ORDERED: diltiazem CD 120mg capsule (once-daily) PO SCH (08:00)
[2018-07-30] MEDS ORDERED: VITC PO SCH (08:00)
[2018-07-30] MEDS ORDERED: BROMELN PO SCH (08:00)
[2018-07-30] MEDS: potassium CL 10mEq/100ml bag 100 ML IV PRN ×9 (08:18→21:27)
[2018-07-30] MEDS: Neutra Phos packet PO PRN ×4 (08:33→21:26)
[2018-07-30] MEDS: propofol 1000mg/100ml bottle 100 ML IV PRN ×4 (09:15→23:52)
[2018-07-30] MEDS ORDERED: iohexol 350MG/ML 100ml bottle IV ONE (09:30)
--- NOTE | 2018-07-30 10:36 | NUR ---
Initial: Pt admit with acute and chronic respiratory failure and COPD exacerbation. Pt currently intubated. TF recommendations below for if prolonged intubation and pt to receive nutrition support. Pt with low Timmy of 12, per physical assessment skin intact. Pt with colostomy, LBM 07/29 with 200 mL stool output per I&O. Will continue to follow. Recommendations: 1) If prolonged intubation and to receive TF, Vital AF with goal rate of 65 mL/hr to provide: total volume of 1560 mL/day, 1872 kcal, 117 g protein, and 1265 water 2) If above, prealbumin q M/TH and daily weight 3) Diet advancement to heart healthy following extubation Addendum: 07/30/18 at [address] Amended: Links added.
--- NOTE | 2018-07-30 12:39 | NUR ---
covering lunch for Rukhsana MALDONADO, pt had sinus tach in 160s for a short time, informed Rukhsana and said pt has done this after coughing and comes out of it. pt now back to high 90s, low 100s with multiform PVCs.
[2018-07-30 13:52] LABS: POTASSIUM 3.1 MMOL/L (3.5-5.1)
[2018-07-30] MEDS: mineral oil/petrolatum ophthal oint EACHEYE SCH ×2 (14:31→19:42)
--- NOTE | 2018-07-30 15:40 | NUR ---
TF consult: Per RN pt with OG in place. Recommendations below calculated to meet 100% of patient's nutrient needs. Will continue to follow. Initial: Pt admit with acute and chronic respiratory failure and COPD exacerbation. Pt currently intubated. TF recommendations below for if prolonged intubation and pt to receive nutrition support. Pt with low Timmy of 12, per physical assessment skin intact. Pt with colostomy, LBM 07/29 with 200 mL stool output per I&O. Will continue to follow. Recommendations: 1) Continuous Vital AF to begin at 20 mL/hr and advance by 20 mL as tolerated Q8H to goal rate of 65 mL/hr to provide: total volume of 1560 mL/day, 1872 kcal, 117 g protein, and 1265 water 2) 200 mL water flush Q4H 3) Prealbumin q / and daily weight 4) Diet advancement to heart healthy following extubation Addendum: 07/30/18 at [address] Amended: Links added.
[2018-07-30] MEDS ORDERED: magnesium 4gm in 100ml NS 100 ML IV PRN (16:25)
[2018-07-30] MEDS ORDERED: magnesium 2GM in 50ml NS 50 ML IV PRN (16:25)
[2018-07-30 17:23] LABS: MAGNESIUM 1.7 MG/DL (1.5-2.4)
--- NOTE | 2018-07-30 18:10 | NUR ---
Problems reprioritized. Patient report given, questions answered & plan of care reviewed with oncoming shift.
[2018-07-30] MEDS ORDERED: glucagon, human recombinant 1mg kit SUBCUT PRN (19:35)
[2018-07-30] MEDS ORDERED: dextrose 50%-water 50ml dispensing syringe IV PRN ×2 (19:35)
[2018-07-30] MEDS ORDERED: dextrose ORAL solution 15 GM/59 ML bottle PO PRN ×2 (19:35)
[2018-07-30] MEDS: lactobacillus rhamnosus 10,000 MMU CELLS/CAPSULE PO SCH (19:42)
[2018-07-30] MEDS: atorvastatin 10mg tablet PO SCH (20:54)
[2018-07-30] MEDS: rivaroxaban 20mg tablet PO SCH (20:54)
[2018-07-30 21:03] LABS: MAGNESIUM 2.8 MG/DL (1.5-2.4); PHOSPHORUS 1.3 MG/DL (2.3-4.5)
[2018-07-30] MEDS ORDERED: sodium phosphate inj. 30 MMOL in dextrose 5%-water 250 ML IV PRN (21:40)
[2018-07-30] MEDS ORDERED: sodium phosphate inj. 15 MMOL in dextrose 5%-water 150 ML IV PRN (21:40)
[2018-07-30] MEDS: insulin glargine (Lantus) pen - multi-dose SQ SCH (21:54)
[2018-07-30] MEDS: insulin regular, human vial - multi-dose SQ SCH (21:55)
[2018-07-30] MEDS: potassium Cl oral solution 20 MEQ/15 ML PO PRN (22:05)
[2018-07-31] VITALS (24 sets, daily range): BP systolic 91–186; BP diastolic 54–83
[2018-07-31] MEDS: methylPREDNISolone sod succ 125mg/2ml vial IV SCH ×4 (02:07→20:25)
[2018-07-31] MEDS: propofol 1000mg/100ml bottle 100 ML IV PRN ×5 (02:07→21:28)
[2018-07-31] MEDS: diltiazem 30mg tablet PO SCH ×4 (02:07→20:25)
[2018-07-31] MEDS: mineral oil/petrolatum ophthal oint EACHEYE SCH ×4 (02:08→20:26)
[2018-07-31] MEDS: potassium Cl oral solution 20 MEQ/15 ML PO PRN ×2 (02:08→06:16)
[2018-07-31] MEDS: insulin regular, human vial - multi-dose SQ SCH ×4 (02:27→20:37)
[2018-07-31] MEDS: ipratropium/albuterol 3ml nebule NEB SCH ×6 (03:39→23:10)
[2018-07-31 03:55] LABS: ABG BASE EXCESS 5.6 mmol/L (-2.0-3.0); ABG OXYGEN SATURATION 97.3 % (95-98); ABG PCO2 (T) 38.4 mmHg (32.0-45.0); ABG PH (T) 7.496 (7.350-7.450); ALLEN'S TEST Positive; FO2Hb 97.3 % (94-100); MINUTE VOLUME 10 L/min; PATIENT TEMPERATURE 37.3; PEEP 5 cm H2O; RESPIRATORY RATE 14 b/min; RESPIRATORY RATE (OBSERVED) 20 b/min; TIDAL VOLUME 400 mL; TOTAL HEMOGLOBIN 13.8 G/dl (12.0-16.0)
[2018-07-31] MEDS: FENTANYL-0.9 % NACL/PF 100 ML IV PRN (04:49)
[2018-07-31] MEDS: normal saline 1000ml 1,000 ML IV SCH (04:52)
[2018-07-31 06:18] LABS: BASOPHILS % (AUTO) 0.1 % (0-1); EOSINOPHILS % (AUTO) 0 % (0-6); HEMATOCRIT 41.2 % (35.0-45.0); HEMOGLOBIN 13.5 g/dl (12.0-16.0); LYMPHOCYTES # (AUTO) 0.9 X10'3 (1.1-4.8); LYMPHOCYTES % (AUTO) 6.5 % (21-51); MEAN CORPUSCULAR HGB CONC 32.7 g/dL (33.0-36.5); MEAN CORPUSCULAR VOLUME 94.8 FL (78-98); MEAN PLATELET VOLUME 9.7 FL (7.4-10.4); MONOCYTES # (AUTO) 0.9 X10'3 (0-0.9); MONOCYTES % (AUTO) 6.6 % (2-12); NEUTROPHILS # (AUTO) 12.3 X10'3 (1.8-7.7); NEUTROPHILS % (AUTO) 86.8 % (42-75); PLATELET COUNT 283 X10'3 (140-440); RED BLOOD COUNT 4.35 X10'6 (4.20-5.60); RED CELL DISTRIBUTION WIDTH 15.2 % (11.5-14.5); WHITE BLOOD COUNT 14.2 X10'3 (4.5-11.0)
--- NOTE | 2018-07-31 06:30 | NUR ---
Patient in room ICU 2045. I have received report from ERICA Hernandez and had the opportunity to ask questions and assume patient care.
[2018-07-31 06:45] LABS: ALANINE AMINOTRANSFERASE 26 U/L (12-78); ALBUMIN/GLOBULIN RATIO 0.6 (1.1-1.5); ALKALINE PHOSPHATASE 113 IU/L (46-116); ANION GAP 11 (8-16); BILIRUBIN,TOTAL 0.3 MG/DL (0.1-1.0); BLOOD UREA NITROGEN 18 MG/DL (7-18); BUN/CREATININE RATIO 23.7 (6.6-38.0); CALCIUM 8.6 MG/DL (8.5-10.1); CHLORIDE 99 MMOL/L (99-107); CREATININE 0.76 MG/DL (0.40-0.90); GLUCOSE 230 MG/DL (70-104); MAGNESIUM 2.5 MG/DL (1.5-2.4); SODIUM 140 MMOL/L (135-145); TOTAL CARBON DIOXIDE 29.6 MMOL/L (24-32); TOTAL PROTEIN 7.9 G/DL (6.4-8.2); eGFR 75 ML/MIN
[2018-07-31 06:51] LABS: ASPARTATE AMINO TRANSFERASE 27 U/L (10-37); PHOSPHORUS 3.2 MG/DL (2.3-4.5); POTASSIUM 3.9 MMOL/L (3.5-5.1)
[2018-07-31] MEDS: budesonide 0.5mg/2ml UD nebule IH SCH ×2 (07:24→19:17)
[2018-07-31] MEDS: CefTRIAXone/D5W-Rocephin 1gm 50 ML IV SCH (07:41)
[2018-07-31] MEDS: docusate sodium 100mg/10ml UD cup PO SCH ×2 (07:41→20:25)
[2018-07-31] MEDS: furosemide 20 MG/2 ML vial IV SCH ×2 (07:41→20:25)
[2018-07-31] MEDS: famotidine/PF 10 mg/ml inj IV SCH ×2 (07:41→20:25)
[2018-07-31] MEDS: multivitamins, therapeutics tablet PO SCH (07:42)
[2018-07-31] MEDS: azithromycin/NS 500mg/250ml 250 ML IV SCH (07:42)
[2018-07-31] MEDS: levoTHYROXINE 75mcg tablet PO SCH (07:42)
[2018-07-31] MEDS: lactobacillus rhamnosus 10,000 MMU CELLS/CAPSULE PO SCH ×2 (07:44→20:26)
[2018-07-31] MEDS: vitamin D (cholecalciferol) 1,000 unit tablet PO SCH (07:44)
[2018-07-31] MEDS: aripiprazole 5mg tablet PO SCH (07:44)
[2018-07-31] MEDS: carvedilol 6.25mg tablet PO SCH ×2 (07:45→20:26)
[2018-07-31] MEDS: FLUoxetine 20mg capsule PO SCH (07:45)
[2018-07-31] MEDS: losartan 25mg tablet PO SCH (07:45)
[2018-07-31] MEDS: sertraline 50mg tablet PO SCH (07:45)
[2018-07-31] MEDS: potassium Cl 20 mEq SR tablet PO SCH (08:00)
--- NOTE | 2018-07-31 11:41 | NUR ---
pt is intubated and sedated, drowsy at times, arousable to voice, follows verbal commands. Titrating sedation gtt to maintain RASS. tolerating spont. breathing mode well with no signs of resp distress. updated family on plan of care.
--- NOTE | 2018-07-31 18:24 | NUR ---
Problems reprioritized. Patient report given, questions answered & plan of care reviewed with ERICA Hernandez.
[2018-07-31] MEDS: insulin glargine (Lantus) pen - multi-dose SQ SCH (20:39)
[2018-07-31] MEDS: atorvastatin 10mg tablet PO SCH (21:20)
[2018-07-31] MEDS: rivaroxaban 20mg tablet PO SCH (21:20)
[2018-07-31 22:03] LABS: ANION GAP 11 (8-16); BLOOD UREA NITROGEN 32 MG/DL (7-18); BUN/CREATININE RATIO 35.2 (6.6-38.0); CALCIUM 9.3 MG/DL (8.5-10.1); CHLORIDE 100 MMOL/L (99-107); CREATININE 0.91 MG/DL (0.40-0.90); GLUCOSE 297 MG/DL (70-104); MAGNESIUM 2.3 MG/DL (1.5-2.4); POTASSIUM 3.1 MMOL/L (3.5-5.1); SODIUM 137 MMOL/L (135-145); TOTAL CARBON DIOXIDE 25.6 MMOL/L (24-32); eGFR 61 ML/MIN
[2018-07-31 23:10] LABS: PHOSPHORUS 1.9 MG/DL (2.3-4.5)
[2018-08-01] VITALS (21 sets, daily range): BP systolic 80–157; BP diastolic 49–112
[2018-08-01] MEDS: potassium Cl oral solution 20 MEQ/15 ML PO PRN ×2 (01:12→04:48)
[2018-08-01] MEDS: Neutra Phos packet PO PRN ×2 (01:12→04:48)
[2018-08-01] MEDS: propofol 1000mg/100ml bottle 100 ML IV PRN (01:37)
[2018-08-01] MEDS: methylPREDNISolone sod succ 125mg/2ml vial IV SCH ×4 (01:39→20:27)
[2018-08-01] MEDS: diltiazem 30mg tablet PO SCH ×4 (01:39→20:27)
[2018-08-01] MEDS: mineral oil/petrolatum ophthal oint EACHEYE SCH ×4 (01:40→20:00)
[2018-08-01] MEDS: FENTANYL-0.9 % NACL/PF 100 ML IV PRN ×2 (01:55→05:14)
[2018-08-01] MEDS: insulin regular, human vial - multi-dose SQ SCH ×3 (02:00→20:18)
[2018-08-01] MEDS: ipratropium/albuterol 3ml nebule NEB SCH ×6 (02:41→23:08)
--- NOTE | 2018-08-01 03:37 | NUR ---
PATIENTS PIV'S ARE OUTDATED. PATIENT IS A DIFFICULT STICK WITH VERY FRAGILE SKIN AND INCREASED BLEEDING TIME WITH EVEN A FINGERSTICK (XARELTO/PLAVIX). SPOKE TO MARCH, [employer] AND SHE AGREED THAT PICC LINE REQUEST SHOULD BE REQUESTED IN THE AM. I WILL PASS THIS INFORMATION TO THE AM RN FOLLOWING.
[2018-08-01 03:46] LABS: ABG BASE EXCESS 3.6 mmol/L (-2.0-3.0); ABG HCO3 25.6 mmol/L (22.0-26.0); ABG OXYGEN SATURATION 94.4 % (95-98); ABG PCO2 (T) 32.5 mmHg (32.0-45.0); ABG PH (T) 7.518 (7.350-7.450); ABG PO2 (T) 71.6 mmHg (83-108); FCOHb 0.4 % (0.5-1.5); FMetHb 0.1 % (0.3-1.12); FO2Hb 93.9 % (94-100); MINUTE VOLUME 10 L/min; PATIENT TEMPERATURE 37.9; PEEP 5 cm H2O; RESPIRATORY RATE (OBSERVED) 25 b/min; TOTAL HEMOGLOBIN 14.5 G/dl (12.0-16.0)
--- NOTE | 2018-08-01 05:00 | NUR ---
AFTER BED CHANGE AND BATH, PATIENT APPEARED TO TIRE ON THE VENT. RR RATE CONSISTANTLY INLOW TO MID 30'S. TOLERATED C-PAP ALMOST 20 HOURS. I ASKED RT TO PLEASE CHANGE TO A RATE FOR THESE LAST FEW HOURS. RT AND I ARE BOTH AWARE PATIENT MAY EXTUBATE TODAY. I DECREASED SEDATION AND PAIN MED CONSIDERABLE. AFTER THE CHANGE TO AC 14, PATIENT IMMEDIATELY DROPPED HER RR TO LOW 20'S. ECTOPY IMPROVED SINCE K+ AND PO4 REPLACEMENT STARTED 1 DOSE OF K+ TO BE GIVEN AT 9 AM AND 1 DOSE OF NEUTOPHOS PACKET TO BE GIVEN AT 9 AM PER THE PROTOCOLS. I WILL PASS THIS ALONG TO THE NEXT RN WHO ASSUMES CARE
[2018-08-01 05:21] LABS: BASOPHILS % (AUTO) 0 % (0-1); EOSINOPHILS % (AUTO) 0 % (0-6); HEMATOCRIT 40.8 % (35.0-45.0); HEMOGLOBIN 13.5 g/dl (12.0-16.0); LYMPHOCYTES # (AUTO) 0.8 X10'3 (1.1-4.8); LYMPHOCYTES % (AUTO) 5.2 % (21-51); MEAN CORPUSCULAR HEMOGLOBIN 30.9 PG (27.0-31.0); MEAN CORPUSCULAR VOLUME 93.7 FL (78-98); MEAN PLATELET VOLUME 9.5 FL (7.4-10.4); MONOCYTES # (AUTO) 0.9 X10'3 (0-0.9); NEUTROPHILS # (AUTO) 13.5 X10'3 (1.8-7.7); NEUTROPHILS % (AUTO) 88.8 % (42-75); PLATELET COUNT 327 X10'3 (140-440); RED BLOOD COUNT 4.35 X10'6 (4.20-5.60); RED CELL DISTRIBUTION WIDTH 15.3 % (11.5-14.5); WHITE BLOOD COUNT 15.2 X10'3 (4.5-11.0)
[2018-08-01 05:42] LABS: ALANINE AMINOTRANSFERASE 33 U/L (12-78); ALBUMIN 2.9 G/DL (3.4-5.0); ALBUMIN/GLOBULIN RATIO 0.6 (1.1-1.5); ALKALINE PHOSPHATASE 109 IU/L (46-116); ANION GAP 10 (8-16); ASPARTATE AMINO TRANSFERASE 20 U/L (10-37); BILIRUBIN,TOTAL 0.2 MG/DL (0.1-1.0); BLOOD UREA NITROGEN 41 MG/DL (7-18); BUN/CREATININE RATIO 42.7 (6.6-38.0); CALCIUM 8.6 MG/DL (8.5-10.1); CHLORIDE 102 MMOL/L (99-107); CREATININE 0.96 MG/DL (0.40-0.90); GLUCOSE 157 MG/DL (70-104); MAGNESIUM 2.3 MG/DL (1.5-2.4); POTASSIUM 3.7 MMOL/L (3.5-5.1); PREALBUMIN 26.9 MG/DL (19-36); SODIUM 139 MMOL/L (135-145); TOTAL CARBON DIOXIDE 26.7 MMOL/L (24-32); TOTAL PROTEIN 7.5 G/DL (6.4-8.2); eGFR 57 ML/MIN
[2018-08-01 05:43] LABS: PARTIAL THROMBOPLASTIN TIME 26 SECONDS (22-32)
[2018-08-01] MEDS: budesonide 0.5mg/2ml UD nebule IH SCH ×2 (06:30→19:18)
[2018-08-01] MEDS: CefTRIAXone/D5W-Rocephin 1gm 50 ML IV SCH (07:28)
[2018-08-01] MEDS: docusate sodium 100mg/10ml UD cup PO SCH ×2 (07:28→20:00)
[2018-08-01] MEDS: furosemide 20 MG/2 ML vial IV SCH ×2 (07:28→20:27)
[2018-08-01] MEDS: famotidine/PF 10 mg/ml inj IV SCH ×2 (07:28→20:27)
[2018-08-01] MEDS: lactobacillus rhamnosus 10,000 MMU CELLS/CAPSULE PO SCH ×2 (07:29→20:00)
[2018-08-01] MEDS: aripiprazole 5mg tablet PO SCH (07:29)
[2018-08-01] MEDS: FLUoxetine 20mg capsule PO SCH (07:29)
[2018-08-01] MEDS: potassium Cl 20 mEq SR tablet PO SCH (07:29)
[2018-08-01] MEDS: carvedilol 6.25mg tablet PO SCH ×2 (07:29→20:30)
[2018-08-01] MEDS: sertraline 50mg tablet PO SCH (07:29)
[2018-08-01] MEDS: levoTHYROXINE 75mcg tablet PO SCH (07:29)
[2018-08-01] MEDS: multivitamins, therapeutics tablet PO SCH (07:29)
[2018-08-01] MEDS: losartan 25mg tablet PO SCH (07:29)
[2018-08-01] MEDS: vitamin D (cholecalciferol) 1,000 unit tablet PO SCH (07:29)
[2018-08-01] MEDS: azithromycin/NS 500mg/250ml 250 ML IV SCH ×2 (07:30→10:46)
--- NOTE | 2018-08-01 10:00 | NUR ---
Extended piv placed by picc RN, instead of picc line; ok'd by Dr Tay.
[2018-08-01] MEDS ORDERED: LORazepam 2 mg/ml vial IV ONE (11:30)
[2018-08-01] MEDS: ondansetron/PF 4mg/2ml inj IV PRN (11:40)
--- NOTE | 2018-08-01 11:53 | NUR ---
Shortly after extubation pt began having increased work of breathing with respiratory rate 35-40. Sats remain 95-95 on 3 liters. Unable to slow her breathing, using accessory muscles. Placed on bipap with ok per Dr Tay at 35% fiO2, epap 15 ipap 5 with a set rate of 20. Dr Tay by to assess patient. Respiratory rate still remains about 40 after ativan [address] Tay, ok to use Morphine also for air hunger. Will give if her work of breathing does not improve. Gave zofran as well; she felt nauseated after the ET tube removed. Remains alert and oriented, able to follow commands.
[2018-08-01] MEDS ORDERED: morphine 2 MG/ML inj. syringe IV PRN (11:55)
[2018-08-01 13:01] LABS: ABG BASE EXCESS -1.2 mmol/L (-2.0-3.0); ABG HCO3 21.6 mmol/L (22.0-26.0); ABG OXYGEN SATURATION 97.3 % (95-98); ABG PCO2 (T) 31.2 mmHg (32.0-45.0); ABG PH (T) 7.458 (7.350-7.450); ABG PO2 (T) 94.4 mmHg (83-108); ALLEN'S TEST Positive; FCOHb 0.3 % (0.5-1.5); FMetHb 0.1 % (0.3-1.12); FO2Hb 96.9 % (94-100); MINUTE VOLUME 26 L/min; PATIENT TEMPERATURE 37.1; RESPIRATORY RATE 20 b/min; RESPIRATORY RATE (OBSERVED) 35 b/min; TOTAL HEMOGLOBIN 14.4 G/dl (12.0-16.0)
--- NOTE | 2018-08-01 13:10 | NUR ---
ABG done on current bipap settings, pCO2 31.2, pO2 94.4, fiO2 decreased to 25% ipap 12 epap 5. Respiratory rate has decreased from 40's to about 30 after bipap ativan and morphine. Resting with eyes closed.
[2018-08-01] MEDS: LORazepam 0.5 MG tablet PO PRN ×2 (18:00→21:25)
[2018-08-01] MEDS: atorvastatin 10mg tablet PO SCH (20:28)
[2018-08-01] MEDS: rivaroxaban 20mg tablet PO SCH (20:30)
[2018-08-01] MEDS: insulin glargine (Lantus) pen - multi-dose SQ SCH (20:30)
[2018-08-02] VITALS (14 sets, daily range): BP systolic 114–177; BP diastolic 65–118
[2018-08-02] MEDS: diltiazem 30mg tablet PO SCH ×4 (01:49→19:51)
[2018-08-02] MEDS: methylPREDNISolone sod succ 125mg/2ml vial IV SCH ×4 (01:49→19:51)
[2018-08-02] MEDS: mineral oil/petrolatum ophthal oint EACHEYE SCH ×3 (02:00→14:00)
[2018-08-02] MEDS: ipratropium/albuterol 3ml nebule NEB SCH ×6 (03:30→22:44)
[2018-08-02 03:45] LABS: BASOPHILS % (AUTO) 0.2 % (0-1); EOSINOPHILS % (AUTO) 0 % (0-6); HEMATOCRIT 40.6 % (35.0-45.0); HEMOGLOBIN 13.5 g/dl (12.0-16.0); LYMPHOCYTES # (AUTO) 1.2 X10'3 (1.1-4.8); LYMPHOCYTES % (AUTO) 9.9 % (21-51); MEAN CORPUSCULAR HEMOGLOBIN 30.9 PG (27.0-31.0); MEAN CORPUSCULAR HGB CONC 33.3 g/dL (33.0-36.5); MEAN PLATELET VOLUME 9.5 FL (7.4-10.4); MONOCYTES # (AUTO) 0.8 X10'3 (0-0.9); MONOCYTES % (AUTO) 6.9 % (2-12); PLATELET COUNT 306 X10'3 (140-440); RED BLOOD COUNT 4.37 X10'6 (4.20-5.60); RED CELL DISTRIBUTION WIDTH 15.7 % (11.5-14.5)
[2018-08-02 03:53] LABS: ALANINE AMINOTRANSFERASE 84 U/L (12-78); ALBUMIN/GLOBULIN RATIO 0.7 (1.1-1.5); ALKALINE PHOSPHATASE 101 IU/L (46-116); ANION GAP 7 (8-16); ASPARTATE AMINO TRANSFERASE 49 U/L (10-37); BILIRUBIN,TOTAL 0.5 MG/DL (0.1-1.0); BLOOD UREA NITROGEN 45 MG/DL (7-18); BUN/CREATININE RATIO 51.1 (6.6-38.0); CALCIUM 8.8 MG/DL (8.5-10.1); CHLORIDE 106 MMOL/L (99-107); CREATININE 0.88 MG/DL (0.40-0.90); GLUCOSE 123 MG/DL (70-104); MAGNESIUM 2.1 MG/DL (1.5-2.4); PHOSPHORUS 3.5 MG/DL (2.3-4.5); POTASSIUM 3.2 MMOL/L (3.5-5.1); SODIUM 143 MMOL/L (135-145); TOTAL CARBON DIOXIDE 29.8 MMOL/L (24-32); TOTAL PROTEIN 7.4 G/DL (6.4-8.2); eGFR 63 ML/MIN
[2018-08-02 04:24] LABS: TOTAL CELLS COUNTED 100
[2018-08-02 04:25] LABS: PLATELET ESTIMATE NORMAL
--- NOTE | 2018-08-02 06:46 | NUR ---
Patient in room ICU 2045. I have received report from ERICA Hernandez and had the opportunity to ask questions and assume patient care.
[2018-08-02] MEDS ORDERED: potassium Cl 20 mEq SR tablet PO PRN (07:34)
[2018-08-02] MEDS: CefTRIAXone/D5W-Rocephin 1gm 50 ML IV SCH (07:37)
[2018-08-02] MEDS: LORazepam 0.5 MG tablet PO PRN ×2 (07:37→19:50)
[2018-08-02] MEDS: mag hydrox/Alum hydrox/simeth 30ml oral suspension PO PRN (07:43)
[2018-08-02] MEDS: budesonide 0.5mg/2ml UD nebule IH SCH ×2 (08:12→19:28)
[2018-08-02] MEDS ORDERED: propofol 1000mg/100ml bottle 100 ML IV PRN (08:17)
[2018-08-02] MEDS: docusate sodium 100mg/10ml UD cup PO SCH (09:32)
[2018-08-02] MEDS: azithromycin/NS 500mg/250ml 250 ML IV SCH (09:33)
[2018-08-02] MEDS: famotidine/PF 10 mg/ml inj IV SCH (09:33)
[2018-08-02] MEDS: furosemide 20 MG/2 ML vial IV SCH ×2 (09:33→19:51)
[2018-08-02] MEDS: vitamin D (cholecalciferol) 1,000 unit tablet PO SCH (09:34)
[2018-08-02] MEDS: potassium Cl 20 mEq SR tablet PO PRN ×3 (09:35→20:13)
[2018-08-02] MEDS: FLUoxetine 20mg capsule PO SCH (09:35)
[2018-08-02] MEDS: carvedilol 6.25mg tablet PO SCH ×2 (09:35→19:52)
[2018-08-02] MEDS: multivitamins, therapeutics tablet PO SCH (09:35)
[2018-08-02] MEDS: lactobacillus rhamnosus 10,000 MMU CELLS/CAPSULE PO SCH ×2 (09:35→19:51)
[2018-08-02] MEDS: levoTHYROXINE 75mcg tablet PO SCH (09:36)
[2018-08-02] MEDS: losartan 25mg tablet PO SCH (09:36)
[2018-08-02] MEDS: aripiprazole 5mg tablet PO SCH (09:36)
[2018-08-02] MEDS: sertraline 50mg tablet PO SCH (09:38)
[2018-08-02] MEDS: potassium Cl 20 mEq SR tablet PO SCH (09:40)
[2018-08-02] MEDS: ondansetron/PF 4mg/2ml inj IV PRN (10:09)
[2018-08-02] MEDS: insulin Lispro (HumaLOG) vial - multi-dose SQ SCH ×2 (10:17→20:03)
--- NOTE | 2018-08-02 11:27 | NUR ---
Reassessment: Pt extubated s/p BSS advanced to pureed/thin liquids per RN. PO 0-25% first meal. Pt requesting ensures today; ensure enlive TIDWM added. MD and dietary notified. LBM 08/02. Will continue to monitor for PO diet tolerance s/p extubation. Recommendations: 1) continue pureed/thin liquid diet per [employer] TILE HELPER recs 2) ensure enlive TIDWM 3) routine bowel care 4) wt per rx Addendum: 08/02/18 at [address] Amended: Links added.
[2018-08-02] MEDS: oxyCODONE/APAP 10/325mg tablet PO PRN ×2 (13:19→20:12)
[2018-08-02] MEDS: lactose-reduced food (Ensure Enlive) - 237ml bottle PO SCH ×2 (13:30→18:00)
--- NOTE | 2018-08-02 16:31 | NUR ---
Pt sent with her belongings in plastic bag, full upper and lower dentures with her. Remote control, black, from home and silver colored ring in container. No glasses or phone with her. Report given to ERICA Olmedo.
--- NOTE | 2018-08-02 18:03 | NUR ---
Problems reprioritized. Patient report given, questions answered & plan of care reviewed with ERICA MORAN.
--- NOTE | 2018-08-02 18:30 | NUR ---
Patient in room MED 313. I have received report from Shara MALDONADO and had the opportunity to ask questions and assume patient care.
[2018-08-02] MEDS: famotidine 20mg tablet PO SCH (19:51)
[2018-08-02] MEDS: docusate sod 100mg capsule PO SCH (19:51)
[2018-08-02] MEDS: rivaroxaban 20mg tablet PO SCH (20:12)
[2018-08-02] MEDS: atorvastatin 10mg tablet PO SCH (20:12)
--- NOTE | 2018-08-02 22:52 | NUR ---
Call placed to [facility] for Dr Pozo about patient having lots of PVC's, Bi gem, Tri Gen but no runs. Informed her that K was 3.1 today and replaced po x 3, last dose at 1999. Asked her if she would like labs drawn sooner for the patient to check her levels and she stated she would.
[2018-08-02 23:15] LABS: ANION GAP 9 (8-16); BLOOD UREA NITROGEN 46 MG/DL (7-18); BUN/CREATININE RATIO 45.1 (6.6-38.0); CALCIUM 8.7 MG/DL (8.5-10.1); CHLORIDE 101 MMOL/L (99-107); CREATININE 1.02 MG/DL (0.40-0.90); GLUCOSE 120 MG/DL (70-104); POTASSIUM 3.9 MMOL/L (3.5-5.1); SODIUM 138 MMOL/L (135-145); TOTAL CARBON DIOXIDE 28.5 MMOL/L (24-32); eGFR 53 ML/MIN
[2018-08-02] MEDS: insulin glargine (Lantus) pen - multi-dose SQ SCH (23:18)
[2018-08-03 02:00] VITALS: BP 106/56
[2018-08-03] MEDS: methylPREDNISolone sod succ 125mg/2ml vial IV SCH ×2 (02:26→08:22)
[2018-08-03] MEDS: oxyCODONE/APAP 10/325mg tablet PO PRN ×2 (02:28→08:35)
[2018-08-03] MEDS: ipratropium/albuterol 3ml nebule NEB SCH ×3 (02:58→10:32)
[2018-08-03 05:24] LABS: BASOPHILS % (AUTO) 0.1 % (0-1); EOSINOPHILS % (AUTO) 0 % (0-6); HEMATOCRIT 38.7 % (35.0-45.0); HEMOGLOBIN 12.6 g/dl (12.0-16.0); LYMPHOCYTES # (AUTO) 0.7 X10'3 (1.1-4.8); LYMPHOCYTES % (AUTO) 7.2 % (21-51); MEAN CORPUSCULAR HEMOGLOBIN 30.5 PG (27.0-31.0); MEAN CORPUSCULAR HGB CONC 32.5 g/dL (33.0-36.5); MEAN CORPUSCULAR VOLUME 93.6 FL (78-98); MEAN PLATELET VOLUME 8.9 FL (7.4-10.4); MONOCYTES # (AUTO) 0.7 X10'3 (0-0.9); MONOCYTES % (AUTO) 6.7 % (2-12); NEUTROPHILS # (AUTO) 8.9 X10'3 (1.8-7.7); PLATELET COUNT 287 X10'3 (140-440); RED BLOOD COUNT 4.14 X10'6 (4.20-5.60); RED CELL DISTRIBUTION WIDTH 15.2 % (11.5-14.5); WHITE BLOOD COUNT 10.3 X10'3 (4.5-11.0)
[2018-08-03 05:53] LABS: ALANINE AMINOTRANSFERASE 93 U/L (12-78); ALBUMIN 2.8 G/DL (3.4-5.0); ALBUMIN/GLOBULIN RATIO 0.8 (1.1-1.5); ALKALINE PHOSPHATASE 96 IU/L (46-116); ANION GAP 11 (8-16); ASPARTATE AMINO TRANSFERASE 28 U/L (10-37); BILIRUBIN,TOTAL 0.4 MG/DL (0.1-1.0); BLOOD UREA NITROGEN 53 MG/DL (7-18); BUN/CREATININE RATIO 48.6 (6.6-38.0); CALCIUM 8.5 MG/DL (8.5-10.1); CHLORIDE 99 MMOL/L (99-107); CREATININE 1.09 MG/DL (0.40-0.90); GLUCOSE 203 MG/DL (70-104); MAGNESIUM 2.2 MG/DL (1.5-2.4); PHOSPHORUS 4.4 MG/DL (2.3-4.5); POTASSIUM 4.8 MMOL/L (3.5-5.1); SODIUM 137 MMOL/L (135-145); TOTAL CARBON DIOXIDE 27.5 MMOL/L (24-32); TOTAL PROTEIN 6.5 G/DL (6.4-8.2); eGFR 49 ML/MIN
[2018-08-03 06:00] VITALS: BP 117/66
--- NOTE | 2018-08-03 06:00 | NUR ---
Patient in room MED 313. I have received report from Emilia MALDONADO and had the opportunity to ask questions and assume patient care.
[2018-08-03] MEDS: budesonide 0.5mg/2ml UD nebule IH SCH (07:03)
[2018-08-03] MEDS ORDERED: diltiazem CD 120mg capsule (once-daily) PO SCH (08:00)
[2018-08-03] MEDS: lactobacillus rhamnosus 10,000 MMU CELLS/CAPSULE PO SCH (08:17)
[2018-08-03] MEDS: docusate sod 100mg capsule PO SCH (08:18)
[2018-08-03] MEDS: multivitamins, therapeutics tablet PO SCH (08:19)
[2018-08-03] MEDS: famotidine 20mg tablet PO SCH (08:19)
[2018-08-03] MEDS: aripiprazole 5mg tablet PO SCH (08:19)
[2018-08-03] MEDS: FLUoxetine 20mg capsule PO SCH (08:19)
[2018-08-03] MEDS: carvedilol 6.25mg tablet PO SCH (08:20)
[2018-08-03] MEDS: sertraline 50mg tablet PO SCH (08:20)
[2018-08-03] MEDS: levoTHYROXINE 75mcg tablet PO SCH (08:20)
[2018-08-03] MEDS: vitamin D (cholecalciferol) 1,000 unit tablet PO SCH (08:20)
[2018-08-03] MEDS: lactose-reduced food (Ensure Enlive) - 237ml bottle PO SCH ×2 (08:21→13:00)
[2018-08-03] MEDS: losartan 25mg tablet PO SCH (08:21)
[2018-08-03] MEDS: potassium Cl 20 mEq SR tablet PO SCH (08:21)
[2018-08-03] MEDS: CefTRIAXone/D5W-Rocephin 1gm 50 ML IV SCH (08:22)
[2018-08-03] MEDS: furosemide 20 MG/2 ML vial IV SCH (08:22)
[2018-08-03 08:26] LABS: PLATELET ESTIMATE NORMAL; TOTAL CELLS COUNTED 100
[2018-08-03] MEDS: insulin Lispro (HumaLOG) vial - multi-dose SQ SCH (08:55)
[2018-08-03] MEDS: mag hydrox/Alum hydrox/simeth 30ml oral suspension PO PRN (09:48)
[2018-08-03] MEDS: azithromycin/NS 500mg/250ml 250 ML IV SCH (10:13)
[2018-08-03 11:00] VITALS: BP 104/63
[2018-08-03] MEDS: LORazepam 0.5 MG tablet PO PRN (12:44)
--- NOTE | 2018-08-03 14:30 | NUR ---
Patient was picked up in stable condition for transfer to [facility] by [employer] personnel. Her IVs were removed with the catheter tips intact, there was minimal bleeding, and clean gauze and tape were applied. Physical Therapy personnel helped to transfer patient into wheelchair. All belongings left with the patient.
--- NOTE | 2018-08-03 14:30 | NUR ---
Problems reprioritized. Patient report given, questions answered & plan of care reviewed with RN at [facility].
== END 2018-08-03 14:30 | DRG 208 ==
LOC: ER 06:10 → PCU 3S 09:56 → EDBEDREQ 12:43 → EDBEDREQSVC 12:43 → ICU 2S 12:44 → CMPBEDREQ 08-01 19:46 → MED 3N 08-02 15:43
PROVIDERS: ADMIT Internal Medicine; ATTEND Internal Medicine Critical Care Medicine
PROC: 5A1945Z Respiratory Ventilation, 24-96 Consecutive Hours (ICD-10-PCS; principal; 2018-07-29)
PROC: 0BH17EZ Insertion of Endotracheal Airway into Trachea, Via Natural or Artificial Opening (ICD-10-PCS; 2018-07-29)
PROC: B32T1ZZ Computerized Tomography (CT Scan) of Left Pulmonary Artery using Low Osmolar Contrast (ICD-10-PCS; 2018-07-30)
PROC: B3201ZZ Computerized Tomography (CT Scan) of Thoracic Aorta using Low Osmolar Contrast (ICD-10-PCS; 2018-07-30)
PROC: B32S1ZZ Computerized Tomography (CT Scan) of Right Pulmonary Artery using Low Osmolar Contrast (ICD-10-PCS; 2018-07-30)
PROC: 5A09357 Assistance with Respiratory Ventilation, Less than 24 Consecutive Hours, Continuous Positive Airway Pressure (ICD-10-PCS; 2018-08-02)
DX: J44.1 Chronic obstructive pulmonary disease with (acute) exacerbation (principal); J96.20 Acute and chronic respiratory failure, unspecified whether with hypoxia or hypercapnia; I42.9 Cardiomyopathy, unspecified; I11.0 Hypertensive heart disease with heart failure; G89.4 Chronic pain syndrome; F41.9 Anxiety disorder, unspecified; E66.01 Morbid (severe) obesity due to excess calories; K21.9 Gastro-esophageal reflux disease without esophagitis; F32.9 Major depressive disorder, single episode, unspecified; J43.2 Centrilobular emphysema; I50.9 Heart failure, unspecified; I48.2 Chronic atrial fibrillation; Z95.810 Presence of automatic (implantable) cardiac defibrillator; Z93.3 Colostomy status; Z90.710 Acquired absence of both cervix and uterus; Z90.49 Acquired absence of other specified parts of digestive tract; Z82.49 Family history of ischemic heart disease and other diseases of the circulatory system; Z82.41 Family history of sudden cardiac death; Z87.01 Personal history of pneumonia (recurrent); Z87.440 Personal history of urinary (tract) infections; Z79.899 Other long term (current) drug therapy
CPT/HCPCS: 31500; 36415; 36600; 71045; 71275; 80048; 80053; 80061; 82803; 82948; 83036; 83605; 83735; 83880; 84100; 84132; 84134; 84484; 85018; 85025; 85610; 85730; 87070; 92508; 92616; 93005; 93306; 94002; 94003; 94640; 94660; 94760; 96365; 96375; 97110; 97162; 97530; 99291; G0378; J0330; J0456; J0696; J1644; J1815; J1940; J2060; J2250; J2270; J2405; J2704; J2930; J3010; J3475; J3480; J3490; J7060; J7626; Q9967